=== PATIENT | female | born 1965 | race Caucasian/White ===

== ENCOUNTER 2016-08-26 10:08 | Emergency (ER) | payer MEDICAID ==
[~2016-08-26] VITALS: Ht 162.6 cm; Wt 77.8 kg
[2016-08-26 10:16] VITALS: Ht 162.6 cm; Wt 77.8 kg
[2016-08-26] MEDS ORDERED: morphine 4 MG/ML VIAL IV STA (10:30)
[2016-08-26 11:11] LABS: ADD SCAN DIFF NO
[2016-08-26 11:14] LABS: BASOPHILS % 0.2 % (0.0-2.0); EOSINOPHILS % 0.5 % (0.0-7.0); HEMATOCRIT 41.6 % (37.0-47.0); HEMOGLOBIN 14.8 g/dl (12.0-16.0); LYMPHOCYTES # 2.5 10^3/ul (0.8-2.9); LYMPHOCYTES % 29.7 % (15.0-51.0); MEAN CORPUSCULAR HGB CONC 35.6 g/dl (32.0-37.0); MEAN CORPUSCULAR VOLUME 87.2 fl (82.0-101.0); MEAN PLATELET VOLUME 10.8 fl (7.4-10.4); MONOCYTE # 0.4 10^3/ul (0.3-0.9); MONOCYTES % 4.6 % (0.0-11.0); NEUTROPHIL # 5.3 10^3/ul (1.6-7.5); NEUTROPHILS % 64.6 % (39.0-77.0); PLATELET COUNT 266 10^3/UL (140-415); RED BLOOD COUNT 4.77 10^6/ul (4.20-5.40); WHITE BLOOD COUNT 8.3 10^3/ul (4.8-10.8)
[2016-08-26 11:16] LABS: ADD UMIC NO; URINE BILIRUBIN (Dip) NEGATIVE (NEGATIVE); URINE BLOOD (Dip) NEGATIVE (NEGATIVE); URINE COLOR LT. YELLOW (YELLOW); URINE GLUCOSE (Dip) NEGATIVE (NEGATIVE); URINE KETONES (Dip) NEGATIVE (NEGATIVE); URINE LEUKOCYTE ESTERASE (Dip) NEGATIVE (NEGATIVE); URINE NITRITE (Dip) NEGATIVE (NEGATIVE); URINE TOTAL PROTEIN (Dip) NEGATIVE (NEGATIVE); URINE UROBILINOGEN (Dip) 0.2 E.U./dL (0.1-1.0)
[2016-08-26] MEDS ORDERED: CEPH500C PO (11:25)
[2016-08-26] MEDS ORDERED: OMEP20CA16 PO (11:26)
[2016-08-26] MEDS ORDERED: UDCOL PO (11:26)
[2016-08-26] MEDS ORDERED: ONDA4TAB95 PO (11:27)
[2016-08-26] MEDS ORDERED: HYDR-906 PO (11:28)
[2016-08-26] MEDS ORDERED: HYD25 PO (11:29)
[2016-08-26] MEDS ORDERED: LISI20TA11 PO (11:30)
[2016-08-26 11:47] LABS: CHLORIDE 98 mmol/L (97-110)
[2016-08-26 11:48] LABS: INR 0.9; PROTIME 12.1 Sec (12.2-14.2); PT RATIO 0.9; SODIUM 143 mmol/L (135-144)
[2016-08-26 11:49] LABS: PARTIAL THROMBOPLASTIN TIME 27.3 Sec (25.0-35.0)
[2016-08-26 11:50] LABS: CREATININE 0.58 mg/dl (0.44-1.00)
[2016-08-26 11:51] LABS: ANION GAP 18 (8-16); BLOOD UREA NITROGEN 13 mg/dl (7-20); CARBON DIOXIDE 31 mmol/L (21-31); GLUCOSE 114 mg/dl (70-220)
[2016-08-26] MEDS ORDERED: SOD CHLORIDE 0.9% 100 ML ONE (12:06)
[2016-08-26] MEDS ORDERED: IOHEXOL 300MG/ML 30 ML BTL ONE (12:06)
[2016-08-26 12:07] LABS: TROPONIN-I < 0.012 ng/ml (0.00-0.12)
[2016-08-26 12:37] VITALS: BP 178/92; PULSE 61; RESP 22
--- NOTE | 2016-08-26 12:53 | RADRPT ---
PROCEDURE: CT head without Contrast CLINICAL INDICATION: Headache, history of tumor removal of left-sided neck TECHNIQUE: Transaxial images were made through the head on a multi-slice scanner without intraveno us contrast. Coronal and sagittal images were subsequently reformatted. One or more of the following dose reduction techniques were used: - Automated exposure control. - Adjustment of the mA and/or kV according to patient size. - Use of iterative reconstruction technique. Radiation dose: CTDIvol = 45.01 mGy; DLP = 720.23 mGy-cm. COMPARISON: None FINDINGS: The calvarium appears intact. The mastoid air cells and paranasal sinuses are well-aerated.. The ventricles are normal in size and there is no midline shift. No intracranial bleed, mass, or extra-axial fluid collection is identified. There is good ely-white matter differentiation. IMPRESSION: Unremarkable noncontrast enhanced CT scan of the head. Physician Kailey Date Time Electronically viewed and signed by Physician Kailey on 08/26/2016 12:53 /
--- NOTE | 2016-08-26 12:53 | RADRPT ---
PROCEDURE: CT scan of the soft tissues of the neck with contrast. CLINICAL INDICATION: History of excision of tumor from left side of neck. Left neck pain. TECHNIQUE: Helical axial sections were obtained through the soft tissues of the neck during intrav enous injection of 80 ml of Omnipaque-300. Sagittal and coronal formatted images were accomplished using the data from the axial images. Total exam DLP is 243.93 mGy-cm. CTDIvol is 9.61 mGy. One or more of the following dose reduction techniques were used: Automated exposure control, adjustment o f the mA and/or kV according to patient size, use of iterative reconstruction technique. COMPARISON: No prior studies available for comparison. FINDINGS: Postsurgical changes are present in the left side of the neck with a small amount of gas in the soft tissues adjacent to the parotid gland. There is no fluid collection or mass. There is no evidence of abscess or hematoma. The vascular structures are normal. The thyroid is normal. The airway is intact. The epiglottis is normal. The osseous structures are normal with no fracture or lytic lesion. The lung apices are normal. IMPRESSION: 1. Postsurgical changes in the left parotid region. 2. No fluid collection or mass to suggest abscess or hematoma. 3. Otherwise unremarkable study. RPTAT: QQ .Jose Juan Garrison MD, MD Date Time Electronically viewed and signed by .Jose Juan Garrison MD, on 08/26/2016 12:53 .R/
--- NOTE | 2016-08-26 13:08 | ERD ---
ER Documentation Chief Complaint Date/Time DATE: 08/26/16 TIME: 13:03 Chief Complaint CP, SOB and dizzyness, and tingling B finger X 15 minutes ago. HPI This is a 51-year-old female who presents to the emergency room for evaluation of neck pain and chest pain. This patient states that she recently had a cyst removal from her neck last week at [facility]. The patient states that today she woke up and was having some pain. She states that she was slightly anxious and started breathing quickly and started having some numbness and tingling in her upper extremities. She states that she also had mild chest pain when she was breathing quickly. The patient states that the chest pain has subsided at this time, and she says she is feeling better but came to the ER for evaluation. ROS All systems reviewed and are negative except as per history of present illness. Medications Home Meds Reported Medications Lisinopril* (Lisinopril*) 20 Mg Tablet, 20 MG PO DAILY, #30 TAB 08/26/16 Hydrochlorothiazide* (Hydrochlorothiazide*) 25 Mg Tab, 25 MG PO DAILY, #30 TAB 08/26/16 Hydrocodone/Acetaminophen (Blount 5-325 Tablet) 1 Each Tablet, 1 EACH PO Q6H, TAB 08/26/16 Ondansetron Hcl* (Ondansetron Hcl*) 4 Mg Tablet, 4 MG PO DAILY Y for NAUSEA AND OR VOMITING, TAB 08/26/16 Omeprazole* (Omeprazole*) 20 Mg Capsule.dr, 20 MG PO DAILY, #30 CAP 08/26/16 Docusate Sodium* (Docusate Sodium* Liq) 50 Mg/5 Ml Liquid, 10 ML PO BID, ML 08/26/16 Cephalexin* (Cephalexin*) 500 Mg Capsule, 500 MG PO QID for 5 Days, #20 CAP 08/26/16 Allergies Allergies: Coded Allergies: No Known Allergy (Unverified , 08/26/16) PMhx/Soc Medical and Surgical Hx: pt denies Surgical Hx History of Surgery: Yes (tumor removal ) Anesthesia Reaction: No Hx Neurological Disorder: Yes (numbness hands) Hx Psychiatric Problems: No Hx Miscellaneous Medical Probl: No Hx Alcohol Use: No Hx Substance Use: No Hx Tobacco Use: No Smoking Status: Former smoker Physical Exam Vitals Vital Signs Date Time Temp Pulse Resp B/P Pulse Ox O2 Delivery O2 Flow Rate FiO2 08/26/16 12:37 61 22 178/92 98 Nasal Cannula 2.0 08/26/16 10:36 Nasal Cannula 2 08/26/16 10:29 66 30 173/89 96 Room Air 08/26/16 10:16 98.1 76 18 183/88 99 Physical Exam INITIAL VITAL SIGNS: Reviewed by me GENERAL: The patient is well developed and appropriate for usual state of health in no apparent distress HEENT: Pupils equal, round, and reactive to light. EOMI. There is no scleral icterus. NECK: Sutures in place in the left lateral neck, no pulsatile mass, no carotid bruit, C-spine is soft and supple, there is no meningismus. There is no cervical lymphadenopathy. LUNGS: Clear to auscultation bilaterally. There are no rales, wheezes or rhonchi. HEART: Regular rate and rhythm, no murmurs, clicks, rubs or gallops. ABDOMEN: Soft, non-tender, non-distended. There are bowel sounds in all four quadrants. No rebound or guarding. EXTREMITIES: There is no peripheral cyanosis or edema. No focal swelling or erythema. NEUROLOGICAL: The patient moves all four extremities with 5/5 strength. Cranial nerves II - XII are intact. Normal gait. Alert and oriented SKIN: There is no apparent rash or petechiae. HEME/LYMPHATIC: There is no evidence of excessive bruising or lymphedema. PSYCHIATRIC: The patient appears to be moderately anxious Result Diagram: 08/26/16 1048 08/26/16 1128 Results 24 hrs Laboratory Tests Test 08/26/16 10:48 08/26/16 11:00 08/26/16 11:28 White Blood Count 8.310^3/ul Red Blood Count 4.7710^6/ul Hemoglobin 14.8g/dl Hematocrit 41.6% Mean Corpuscular Volume 87.2fl Mean Corpuscular Hemoglobin 31.0pg Mean Corpuscular Hemoglobin Concent 35.6g/dl Red Cell Distribution Width 13.0% Platelet Count 77302^3/UL Mean Platelet Volume 10.8fl Neutrophils % 64.6% Lymphocytes % 29.7% Monocytes % 4.6% Eosinophils % 0.5% Basophils % 0.2% Nucleated Red Blood Cells % 0.0/100WBC Neutrophils # 5.310^3/ul Lymphocytes # 2.510^3/ul Monocytes # 0.410^3/ul Eosinophils # 0.010^3/ul Basophils # 0.010^3/ul Nucleated Red Blood Cells # 0.010^3/ul Urine Color LT. YELLOW Urine Clarity CLEAR Urine pH 7.0 Urine Specific [place] 1.010 Urine Ketones NEGATIVE Urine Nitrite NEGATIVE Urine Bilirubin NEGATIVE Urine Urobilinogen 0.2 E.U./dL Urine Leukocyte Esterase NEGATIVE Urine Hemoglobin NEGATIVE Urine Glucose NEGATIVE% Urine Total Protein NEGATIVE Prothrombin Time 12.1Sec Prothrombin Time Ratio 0.9 INR International Normalized Ratio 0.90 Activated Partial Thromboplast Time 27.3Sec Sodium Level 143mmol/L Potassium Level 4.0mmol/L Chloride Level 98mmol/L Carbon Dioxide Level 31mmol/L Anion Gap 18 Blood Urea Nitrogen 13mg/dl Creatinine 0.58mg/dl Glucose Level 114mg/dl Calcium Level 10.0mg/dl Troponin I < 0.012ng/ml Current Medications Medications (Trade) Dose Ordered Sig/Dannie Route PRN Reason Start Time Stop Time Status Last Admin Dose Admin Morphine Sulfate (morphine) 4 mg ONCE STAT IV 08/26/16 10:30 08/26/16 11:38 DC 08/26/16 10:47 IV Flush 10 ml 10 ml STK-MED ONCE .ROUTE 08/26/16 12:06 08/26/16 12:07 DC Sodium Chloride (NS) 100 ml @ ud STK-MED ONCE .ROUTE 08/26/16 12:06 08/26/16 12:07 DC Iohexol (Omnipaque 300mg/ ml) 30 ml STK-MED ONCE .ROUTE 08/26/16 12:06 08/26/16 12:07 DC Procedures/MDM EKG: Rate/Rhythm: [Normal Sinus Rhythm] QRS, ST, T-waves: [No changes consistent w/ acute ischemia] Impression: [No evidence of ischemia or arrhythmia] Chest X-ray 1V Interpreted by me: Soft Tissue: No acute abnormalities Bones: No acute abnormalities Mediastinum/Cardiac Silhouette/Lungs: [No acute abnormalities] CT brain without: No stroke no bleed CT neck with contrast: 1. Postsurgical changes in the left parotid region. 2. No fluid collection or mass to suggest abscess or hematoma. 3. Otherwise unremarkable study. This 41-year-old female presents to the emergency room for evaluation of headache, neck pain, chest pain and numbness and tingling in her upper extremities. When I evaluated this patient she was moderately anxious. Lab work was obtained including a troponin which was normal. Her EKG is nonischemic. Chest x-ray is within normal limits. CT the head and CT of the soft tissue neck did not show any bleed or masses. The patient does have postsurgical changes of the neck. I do feel that her paresthesias and upper extremity were secondary to hyperventilation secondary to anxiety. This patient is hemodynamically stable at this time, no acute distress. I advised her she needs a follow-up with her ENT physician for suture removal when she was advised to do so. She verbalized understanding. She has no chest pain at this time, and is okay with our plan for discharge. I advised him to return to the ER if her symptoms were to worsen and she also verbalized understanding and is okay with her plan of care. Departure Diagnosis: Primary Impression: Chest pain Additional Impressions: Postoperative pain Anxiety attack Condition: Stable JOSE LUIS VELÁSQUEZ DO Aug 26, 2016 13:08
--- NOTE | 2016-08-26 13:16 | RADRPT ---
PROCEDURE: XR Chest. CLINICAL INDICATION: Chest pain. TECHNIQUE: Single frontal view. COMPARISON: None. FINDINGS: The lungs are clear. The heart size is normal. There is no pleural effusion. There is no pneumothorax. IMPRESSION: 1. Normal chest radiograph. RPTAT: QQ .Jose Juan Garrison MD, Date Time Electronically viewed and signed by .Jose Juan Garrison MD, on 08/26/2016 13:16 .R/
== END 2016-08-26 13:20 | disposition home or self-care (01) ==
LOC: E/R 10:08
DX: R07.9 Chest pain, unspecified (principal); G89.18 Other acute postprocedural pain; F41.9 Anxiety disorder, unspecified; R42 Dizziness and giddiness; Z87.891 Personal history of nicotine dependence
CPT/HCPCS: 36415; 70450; 70491; 71010; 80048; 81003; 84484; 85025; 85610; 85730; 93005; 96374; J2270; Q9967; Z7502; Z7610

== ENCOUNTER 2019-02-02 14:17 | Emergency (ER) | payer MEDICAID ==
[~2019-02-02] VITALS: Wt 71.4 kg
[~2019-02-02 14:17] MED LIST: CEPH500C PO; DOCU50LI23 PO; HYDR-4011 PO; HYDR25TA6 PO; LISI-471 PO; NAPR-985 PO; OMEP20CA17 PO; ONDA4TAB95 PO; PHEN-537 PO
[2019-02-02 14:24] VITALS: Wt 71.4 kg
[2019-02-02] MEDS ORDERED: KETOROLAC 30 MG INJ IM STA (16:02)
[2019-02-02 17:25] VITALS: BP 132/76; PULSE 77; RESP 20
== END 2019-02-02 17:26 | disposition home or self-care (01) ==
LOC: FTE 14:17
DX: D25.9 Leiomyoma of uterus, unspecified (principal); R10.9 Unspecified abdominal pain
CPT/HCPCS: 74176; 80048; 81003; 85025; 85610; 85730; 87086; 96372; J1885; Z7502